=== PATIENT | male | born 1980 | race Caucasian/White ===

== ENCOUNTER 2019-03-13 12:46 | Emergency (ER) | payer OTHER ==
[~2019-03-13] VITALS: Ht 170.2 cm; Wt 77.1 kg
[2019-03-13 12:46] VITALS: BP_SYST 159
--- NOTE | 2019-03-13 12:50 | NUR ---
BROUGHT BACK TO BED #7 AND TRIAGED. REPORT GIVEN TO LAYLA
--- NOTE | 2019-03-13 12:53 | NUR ---
Patient to ER bed 7 to gown for evaluation. Side rails up.
--- NOTE | 2019-03-13 12:55 | NUR ---
PATIENT CAME IN COMPLAINING OF CHEST PAIN FOR ABOUT 2 WEEKS. PATIENT COMPLAINING OF 4/10 INTERMITENT PAIN. SOMETIMES PAIN IS SHARP OTHER TIMES IT IS THROBBING PER PATIENT. PATIENT STATES PAIN RADIATES TO BACK. PATIENT ALSO COMPLAINING OF LEFT ARM NUMBNESS RADIATING TO LEG. PATIENT STATES HE TOOK ADVIL AND TYLENOL FOR PAIN WHICH HELPED A LITTLE. PATIENT DENIES SOB, NAUSEA, AND VOMITING. PATIENT ALERT AND ORIENTED X4.
--- NOTE | 2019-03-13 13:15 | NUR ---
ER Dr. MENDEZ at bedside examining patient.
[2019-03-13] MEDS ORDERED: NACL 0.9% 1,000 ML IV ONE (13:19)
[2019-03-13] MEDS ORDERED: KETOROLAC TROMETHAMINE 30 MG VIAL IVP ONE (13:30)
--- NOTE | 2019-03-13 13:30 | NUR ---
# 18 gauge angiocath placed to LEFT AC. Use of asceptic technique. Opsite placed over site. Blood return noted. Blood for lab drawn from site. Flushed with 10 cc of normal saline. No evidence of infiltration noted. Patient tolerated well.
[2019-03-13 13:42] LABS: BASOPHILS % (AUTO) 0.4 % (0.0-2.0); EOSINOPHILS % (AUTO) 0.4 % (0.0-4.0); HEMATOCRIT 45.9 % (36-54); HEMOGLOBIN 15.5 g/dL (14.0-18.0); LYMPHOCYTES # (AUTO) 1.2 K/uL (1.0-5.5); LYMPHOCYTES % (AUTO) 23.5 % (20.5-51.5); MEAN CORPUSCULAR HEMOGLOBIN 33 pg (27-31); MEAN CORPUSCULAR HGB CONC 34 % (32-36); MEAN CORPUSCULAR VOLUME 96 fL (79.0-98.0); MONOCYTES # (AUTO) 0.3 K/uL (0.0-1.0); MONOCYTES % (AUTO) 6.3 % (1.7-9.3); NEUTROPHILS # (AUTO) 3.6 K/uL (1.8-7.7); NEUTROPHILS % (AUTO) 69.4 % (40.0-70.0); PLATELET COUNT (AUTO) 200 K/uL (130-430); RED BLOOD CELL COUNT(AUTO) 4.77 MIL/uL (4.2-6.2); RED CELL DISTRIBUTION WIDTH 12.9 % (9.0-15.0); WHITE BLOOD COUNT (AUTO) 5.1 K/uL (4.8-10.8)
--- NOTE | 2019-03-13 13:43 | NUR ---
PATIENT GETTING X RAY IN BED.
[2019-03-13 13:53] LABS: ANION GAP 8 (5-15); CALCIUM 8.9 mg/dL (8.4-11.0); CHLORIDE 105 mmol/L (98-107); CREATININE 1.04 mg/dL (0.55-1.30); GLUCOSE 93 mg/dL (70-99); POTASSIUM 3.9 mmol/L (3.5-5.1); SODIUM SERUM 141 mmol/L (136-145); UREA NITROGEN, BLOOD 17 mg/dL (8-21)
[2019-03-13 13:57] LABS: GFR AFRICAN AMERICAN 103 mL/min (>90)
[2019-03-13 14:02] LABS: ALANINE AMINOTRANSFERASE 19 U/L (12-78); ALBUMIN 3.8 g/dL (3.4-4.8); ASPARTATE AMINOTRANSFERASE 15 U/L (10-37)
--- NOTE | 2019-03-13 14:28 | NUR ---
PATIENT RESTING IN BED WITH NO SIGNS OF DISTRESS. PATIENT HAS NO FURHTER NEEDS AT MOMENT. WILL CONTINUE TO MONITOR.
[2019-03-13 15:49] VITALS: BP_SYST 120
--- NOTE | 2019-03-13 15:49 | NUR ---
Patient given written and verbal discharge instructions and verbalizes understanding. ER MD discussed with patient the results and treatment provided. Patient in stable condition. ID arm band removed. IV catheter removed intact and dressing applied, no active bleeding. Rx of NAPROSYN given. Patient educated on pain management and to follow up with PMD. Pain Scale 1/10 TOLERABLE. Opportunity for questions provided and answered. Medication side effect fact sheet provided.
== END 2019-03-13 15:49 | disposition home or self-care (01) ==
LOC: SED 12:46
DX: R07.89 Other chest pain (principal); I10 Essential (primary) hypertension; F17.210 Nicotine dependence, cigarettes, uncomplicated; F14.90 Cocaine use, unspecified, uncomplicated; F12.90 Cannabis use, unspecified, uncomplicated; Z88.6 Allergy status to analgesic agent; Z88.8 Allergy status to other drugs, medicaments and biological substances; Z91.011 Allergy to milk products
CPT/HCPCS: 36415; 71045; 80053; 84484; 85025; 93005; 96374; 99284; J1885; J7030